=== PATIENT | male | born 1970 | race Caucasian/White ===

== ENCOUNTER → 2023-10-22 08:15 | Outpatient (BNV) | payer OTHER, SELFPAY | PROVIDERS: Visit Provider Psychiatry & Neurology Psychiatry | DX: F33.2 Major depressive disorder, recurrent severe without psychotic features (principal); F90.9 Attention-deficit hyperactivity disorder, unspecified type; F41.3 Other mixed anxiety disorders; F88 Other disorders of psychological development | CPT/HCPCS: 90792; 99213; 99214; 99499 ==

== ENCOUNTER 2023-10-22 14:35 | Outpatient (REF) | payer MEDICAID, SELFPAY ==
--- NOTE | 2023-10-22 | ECG_ITS ---
Test Reason : QTC CHECK Blood Pressure : / mmHG Vent. Rate : 056 BPM Atrial Rate : 056 BPM P-R Int : 156 ms QRS Dur : 104 ms QT Int : 444 ms P-R-T Axes : 070 -16 025 degrees QTc Int : 428 ms Sinus bradycardia Otherwise normal ECG No previous ECGs available Referred By: Denise Raman Electronically Signed By:JET RAMSEY MD
[2023-10-22 14:55] LABS: MANUAL DIFF FLAG NO
[2023-10-22 15:25] LABS: Basophils Absolute Auto 0.1 X10*3/uL (0.0-0.2); Basophils Percent Auto 0.6 % (0-2); Eosinophils Percent Auto 0.4 % (0-4); Hematocrit 40.3 % (42.0-52.0); Hemoglobin 13.8 g/dl (14.0-18.0); Imm Gran Abs Auto 0.08 X10*3/uL (0.00-0.03); Lymphocytes Absolute Auto 1.9 X10*3/uL (1.2-4.9); Lymphocytes Percent Auto 22.9 % (20-40); Mean Corpuscular HGB Conc 34.2 g/dl (31.0-36.0); Mean Corpuscular Volume 87.6 fL (80.0-98.0); Mean Platelet Volume 10.3 fL (9.4-12.4); Monocytes Absolute Auto 0.7 X10*3/uL (0.1-1.2); Monocytes Percent Auto 8.1 % (2-11); Neutrophils Absolute Auto 5.5 x10*3/uL (2.0-8.3); Platelet Count 232 X10*3/uL (160-400); Red Cell Distribution Width 13.9 % (11.0-16.0); White Blood Count 8.2 X10*3/uL (4.8-10.8)
[2023-10-22 16:01] LABS: Erythrocyte Sedimentation Rate 9 MM/HR (0-15)
[2023-10-22 16:04] LABS: Alanine Aminotransferase 53 U/L (0-40); Albumin Level 4.9 g/dL (3.5-5.0); Alkaline Phosphatase 85 U/L (39-117); Anion Gap 10 (12-20); Aspartate Amino Transferase 43 U/L (5-37); Bilirubin Total 0.3 mg/dL (0.0-1.0); Blood Urea Nitrogen 16 mg/dL (9-16); Calcium 9.9 mg/dL (8.4-10.2); Carbon Dioxide 28 mmol/L (22-29); Chloride 107 mmol/L (96-108); Estimated Glomerular Filt Rate > 60; Glucose Random 142 mg/dL (60-115); Magnesium 2.2 mg/dL (1.6-2.6); Potassium 4.2 mmol/L (3.3-5.1); Sodium 141 mmol/L (135-145); Total Protein 7.6 g/dL (6.5-8.0)
[2023-10-22 16:21] LABS: Free T4 (Free Thyroxine) 0.83 ng/dL (0.71-1.85); Thyroid Stimulating Hormone 3.05 uIU/mL (0.32-4.0)
[2023-10-22 16:25] LABS: Estimated Average Glucose 143 mg/dL; Hemoglobin A1c % 6.6 % (<6.0)
[2023-10-22 20:53] LABS: Vitamin B12 524 pg/mL (200-900)
[2023-10-23 19:24] LABS: Homocysteine 10.4 umol/L (<11.4)
== END 2023-10-22 14:36 | disposition home or self-care (01) ==
LOC: HO.LAB 14:35
PROVIDERS: Visit Provider Psychiatry & Neurology Psychiatry
DX: F39 Unspecified mood [affective] disorder (principal)
CPT/HCPCS: 36415; 80053; 82306; 82607; 83036; 83090; 83735; 84439; 84443; 85025; 85652; 86140; 93005

== ENCOUNTER → 2023-10-22 14:59 | Outpatient (BNV) | payer MEDICAID, SELFPAY | PROVIDERS: Visit Provider Internal Medicine Cardiovascular Disease | DX: R00.1 Bradycardia, unspecified (principal) | CPT/HCPCS: 93010 ==

== ENCOUNTER 2023-11-04 09:00 | Outpatient (RCR) | payer OTHER, SELFPAY ==
[2023-10-15 11:33] VITALS: BMI 26.7
--- NOTE | 2023-10-15 12:16 | PC.ADMIT ---
Patient is a 52 year old male who was referred to [facility] by his therapist d/t increased sxs of depression and anxiety. Reports history of depression for most of his life however the past 3-4 years symptoms have increased. Patient reports stresses include divorce from his of 10 years and patent had to move in with his father as a result. Patient also reports watching his mother from Parkinson's disease was traumatic, and having a HI in 2019. Patient reports he has been using Marijuana to cope with how he is feeling, a way to numb himself using a joint daily for the past 5-6 months. Patient stated he was going to college for Occupational Therapy and when Covid came his college changed from in person to online and he could not continue as he struggled to do classes online. One of his goals is to go back to college. He currently is working part-time at [employer] and [employer]. Huber is alert and oriented x4. Calm and cooperative. Presented with depressed mood and affect. Denied SI. He stated he could never do that to his father. He was given a copy of his safety plan if needed. He reports low self esteem and has been isolating d/t depression. Reports f feelings of hopelessness and worthlessness. Patient's medications reconciled with patient and patient's pharmacy. He reports he sometimes forgets to take his prescribed Lisinopril. Medication education provided and tips how to remember to take medications reviewed.
--- NOTE | 2023-10-15 15:25 | HO.PHP ---
Client's case has been opened and reviewed in treatment team.
--- NOTE | 2023-10-15 22:23 | P.HPPSP_ITS ---
HPI Date of Service: 10/15/23 Chief Complaint: MDD Sources of Information: patient interviewed, chart reviewed and crisis/core team assessment reviewed HPI Narrative: Patient is a 52 yo male with history of depression, anxiety and s/p [place] 5 years ago who was referred by his therapist for additional supports for struggles with anxiety and depression. This is his 1st PHP admission. He reports that he has been having a hard time and seems everything has been going wrong over the past few years in context of his mother's in 2018, job loss and divorce in 2020. At the time, he caring for his mother who from Parkinson's Disease back in 2018. Patient had been her primary animal care attendant and reports that it took a toll on him to watch her decline. she used to say 'just kill me please' and that was also around when the patient himself suffered a heart attack unexpectedly and was told by his upholstery bundler that had he not sought medical attention he would most certainly woud have . He notes that it's was hard to just move on and live my life normally after that event saying that the [place] had left him with a considerable amount of anticipatory anxiety and being easily triggered by any sensation in his body, trying to sense if there was an impending heart attack . 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 I just don't think the teacher liked me . He reports general decline in functioning since losing my job, it's gotten worse . He and his had a couple of separations in 2019 and eventually in 2020. 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 He reports transient helplessness, hopelessness, but denies any thoughts of harming himself or others. He reportedly feels overwhelmed, and has been struggling with emotional instability and function impairment over the past 5 years. Past Psychiatric History: No previous IPLOCs, PHP or detox admissions Denies hx of suicide attempts or SIBs Denies hx of aggression Hx of neuropsych eval - reports cognitive/reading problems, Learning Disability Therapist: Azucena Willard (for past 2-3 months) PCP: CURRENT MEDICATIONS: ZOloft 200 mg qd Buspar 15 mg qd trazodone 100 mg qhs metoprolol 25 mg qd LT4 50 mcg qd lisinopril 10 mg qd [facility] Medical History (Updated 10/30/23 @ 09:52 by Latasha Greene RN) Type 2 diabetes mellitus without complication, without long-term current use of insulin Colonic adenoma CARLOS (obstructive sleep apnea) History of migraine Vitamin B 12 deficiency Vitamin D deficiency Aortic root dilatation Nonrheumatic aortic (valve) insufficiency CAD S/P percutaneous coronary angioplasty Hypothyroidism Hyperlipidemia HTN (hypertension) Myocardial infarct Social History: , after 9 yrs of marriage. Was with ex- for years prior to marriage. No biological children. Has step-son age 22 yo, on autism spectrum. 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 Drank more often in his 20s, denies any abuse hx Nicotine use - occasionally vapes/cigs, denies regular use Once snorted buprenorphine <2 times. Denies other drug use Diagnostics Vital Signs (24Hr): BMI result Body Mass Index 26.7 Meds/Allergies Meds Home Medications ?Medication ?Instructions ?Recorded ?Confirmed ?Type aspirin 81 mg capsule 81 mg PO DAILY 10/15/23 10/15/23 History buspirone 15 mg tablet 15 mg PO DAILY 10/15/23 10/15/23 History levothyroxine 50 mcg tablet 50 mcg PO DAILY 10/15/23 10/15/23 History lisinopril 10 mg tablet 10 mg PO DAILY 10/15/23 10/15/23 History metoprolol succinate 25 mg 25 mg PO DAILY 10/15/23 10/15/23 History tablet,extended release 24 hr rosuvastatin 40 mg tablet 40 mg PO DAILY 10/15/23 10/15/23 History sertraline 100 mg tablet 200 mg PO DAILY 10/15/23 10/15/23 History trazodone 50 mg tablet 50 - 100 mg PO BEDTIME 10/15/23 10/15/23 History Allergies Allergies Allergy/AdvReac Type Severity Reaction Status Date / Time amoxicillin [From Augmentin] Allergy Hives Verified 10/15/23 11:28 clavulanic acid Allergy Hives Verified 10/15/23 11:28 [From Augmentin] Mental Status Exam Mental Status Exam Narrative: Alert, oriented, in no acute distress. Calm, cooperative, engaged. No psychomotor agitation or neurovegetative retardation. Eye contact maintained. Mood depressed, affect dysthymic, tearfulness. Speech normal. Thought process scattered, linear, coherent. Thought content related to stressors, executive dysfunction, feeling overwhelmed, some transient helplessness and hopelessness, denies SI, intention or plan. Denies any aggressive ideation. No paranoia or delusional content elicited. No evidence of psychosis. Insight and judgment fair but adequate. Assessment & Plan Assessment & Plan (1) MDD (major depressive disorder), recurrent severe, without psychosis: Status: Acute Code(s): F33.2 - Major depressive disorder, recurrent severe without psychotic features (2) ADHD (attention deficit hyperactivity disorder): Status: Acute Code(s): F90.9 - Attention-deficit hyperactivity disorder, unspecified type (3) Other mixed anxiety disorders: Status: Acute Code(s): F41.3 - Other mixed anxiety disorders (4) Mixed learning disorder: Status: Acute Code(s): F88 - Other disorders of psychological development Plan Admit to [facility] reviewed: abrefile; BP? bpm Continue regular medications for now increase Buspar to 15 mg BID-TID Routine lab work ordered UDS, EKG as indicated MassPat reviewed Continue to monitor as per protocol Patient educated on: diagnosis, medication risk/benefits and substance abuse Informed Consent: understands Certification I certify that partial hospital treatment is medically necessary due to the symptoms and problems resulting from the patient's mental illness and the failure to treat the patient at the partial hospital level of care would likely result in the patient requiring inpatient psychiatric care which could not be prevented at a less intensive level of care. Time Spent With Patient Time: Total time managing care of this patient today ____ minutes.
--- NOTE | 2023-10-22 15:40 | HO.PHP ---
[facility] staff member followed up with Huber due to him being dysregulated due to not knowing when he will be seeing the doctor. [facility] staff member provided him with support and allowed him space to process his questions around ADHD. [facility] staff member provided some insight and then Dr. Raman came into the room to meet with him. During the time [facility] staff member met with Huber, he was tearful and frustrated.
--- NOTE | 2023-10-22 23:26 | HO.PHPPROGNO ---
Subjective Subjective Date of Service: 10/22/23 Reason For Visit: MDD Interim History: I'm anxious . Patient is feeling overwhelmed by his anxiety, and poor functioning and feeling that is end date is approaching and still not sure how to problem solve to help himself. He has been reflecting on our conversation about ADHD and thinking of all the years of funcitonal struggles with chronic anxiety, multiple job losses, relationship failures and other life adversity, some of which he recognizes that he inadvertently contribute to how own failures, and recognizes some engrained habits, procrastination, self-sabotaging and is feeling really overwhelmed with the weight of life's troubles and perceived failures. He feesl ADHD makes a lot of sense and feels conflicted between feeling relief of having an explanation for his chronic mental health struggles (why years of treatment for depression, anxiety have been insufficiently addressed his problems, but also feeling regret/sense of loss for not having his attentional problems and issues with executive dysfunction appreciated or being identified earlier in life as an individual who has been struggling with ADHD for almost his entire life. Looking back it is much easier to see this now through this diagnostic lens. We discuss that treatment for ADHD is more than just taking a medication, it will require a lot of lifestyle and behaivoral changes, certainly something he can work on with a therapist (or find a therapist who is experienced with ADHD challenges), also reading and learning more about the condition, and strategies to help manage related occupational and relationship challenges. Medication as well is complicated given patient's signficant cardiac history. There are some medication interactions that I suggest we could sort out just to minimize potential adverse effects/outcomes, in order to make some space for a low dose mood stabilizer that may help with chronic mood reactivity/instability which patient is agreeable with. He is also open to having an EKG today and some routine lab work after the program today. Medication Compliance: Yes Side effects from medications: No Attending Groups: Yes Review of Systems Acute medical concerns: No Mental Status Exam Mental Status Exam Narrative: Alert, oriented, in no acute distress. Initially tearful but grew calmer with support, was cooperative and engaged. No psychomotor agitation or neurovegetative retardation. Eye contact maintained. Mood depressed, affect dysthymic, tearfulness. Speech normal. Thought process scattered, linear, coherent. Thought content related to stressors, executive dysfunction, feeling overwhelmed, some transient helplessness and hopelessness, denies SI, intention or plan. Denies any aggressive ideation. No paranoia or delusional content elicited. No evidence of psychosis. Insight and judgment fair. Diagnostics Vital Signs (24Hr): BMI result Body Mass Index 26.7 Assessment & Plan Assessment & Plan (1) MDD (major depressive disorder), recurrent severe, without psychosis: Status: Acute Code(s): F33.2 - Major depressive disorder, recurrent severe without psychotic features (2) Other specified persistent mood disorders: Status: Acute Code(s): F34.89 - Other specified persistent mood disorders (3) ADHD (attention deficit hyperactivity disorder): Status: Acute Code(s): F90.9 - Attention-deficit hyperactivity disorder, unspecified type (4) Other mixed anxiety disorders: Status: Acute Code(s): F41.3 - Other mixed anxiety disorders (5) Cannabis use disorder: Status: Acute Code(s): F12.90 - Cannabis use, unspecified, uncomplicated (6) Mixed learning disorder: Status: Acute Code(s): F88 - Other disorders of psychological development Plan Routine lab work ordered - no fasting labs as pt going after group today - will check CBC, CMP, HbA1c, TFTs, vit D, Mg, homocysteine, ESR, CRP may consider fasting labs cholestrol or other issues that arise on today's labs EKG ordered for baseline QTc, assuming wnl will plan to start Abilify 1 mg qhs may consider guanfacine ER 1 mg qd (will review EKG, VS tomorrow) and further consider other ADHD treatment continue metoprolol 25 mg qd reviewed risk, benefit, side effects of various medications to ADHD (Vyv vs modaf vs WB vs atemox vs mem) and also considered risk of treatment vs risk/benefit of not treating continue sertraline 200 mg qd for now, although plan to decrease dose, possibly to 150 mg (alana if considering NDRI) discontinue Buspar (AE: ineffective, will reduce polypharmacy) discontinue trazodone (reduce # of med/med interactions) start lorazepam 1 mg (take 1/2 - 1 tablet) PRN sleep Continue to monitor Patient educated on: diagnosis and medication risk/benefits Informed Consent: understands Reason for contiued partial hosp. stay Substantial Risk for: inability to function and med/psych decompensation Certification I certify that partial hospital treatment is medically necessary due to the symptoms and problems resulting from the patient's mental illness and the failure to treat the patient at the partial hospital level of care would likely result in the patient requiring inpatient psychiatric care which could not be prevented at a less intensive level of care. Total time managing care of this patient today __30__ minutes. Discharge Plan Discharge Attending provider: Denise Raman Medications: New aripiprazole 2 mg tablet 2 mg PO BEDTIME Qty: 20 0RF guanfacine 1 mg tablet extended release 24 hr 1 mg PO DAILY Qty: 20 0RF cholecalciferol (vitamin D3) [Vitamin D3] 125 mcg (5,000 unit) tablet 125 mcg PO DAILY 30 Days Qty: 30 2RF lorazepam 1 mg tablet 0.5 - 1 mg PO BEDTIME PRN (Reason: sleep) Qty: 20 0RF metformin 500 mg tablet 250 mg PO TID Qty: 30 0RF No Action sertraline 100 mg tablet 200 mg PO DAILY Rx Instructions: Take 2 tabs daily. trazodone 50 mg tablet 50 - 100 mg PO BEDTIME levothyroxine 50 mcg tablet 50 mcg PO DAILY metoprolol succinate 25 mg tablet extended release 24 hr 25 mg PO DAILY rosuvastatin 40 mg tablet 40 mg PO DAILY lisinopril 10 mg Tablet 10 mg PO DAILY Patient Comments: Missing doses. aspirin 81 mg Capsule 81 mg PO DAILY buspirone 15 mg tablet 15 mg PO DAILY Patient Comments: Buspar is prescribed 15 mg TID however patient stated he is only taking daily. Print Language: South Korean
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
--- NOTE | 2023-10-23 12:40 | PM.EVENT ---
Event Note Date of Service: 10/25/23 Event Note: Patient was unable to attend program today. I called and spoke with him by phone. Medications were sent over late last night so patient would not be picking them up until later today. I also briefly reviewed some of the lab findings (HbA1c was elevated at 6.6, prediabetic, but we will order a set of fasting labs including lipid panel next week. Bradycardic on EKG, so I ask that he not start with the guanfacine for now and we will revisit this next week. For now I will have him start on Abilify at 1 mg. I also sent over metformin which I will start to mitigate weight gain on an atypical rx, however I suggest he follow up with his PCP who may want to manage this further. I also sent over vitamin D supplement for vitamin D insufficiency. Will review next week when remaining lab values return. Patient denies any hopelessness or SI, says he was having care trouble and that he will be in on Thursday. Time Spent With Patient Time: Total time managing care of this patient today __15__ minutes.
--- NOTE | 2023-10-26 14:14 | PC.NURSE ---
Huber participated in group discussion about social supports and connecting to the community. Discussion and information provided on local resources for mental health in the area such as [employer]. Huber was quiet throughout group but participated when prompted.
[2023-10-28 09:25] VITALS: BP 138/81; PULSE 66
--- NOTE | 2023-10-30 23:29 | P.PNPSP_ITS ---
Subjective Subjective Date of Service: 10/30/23 Reason For Visit: MDD Interim History: Patient seen for follow-up today. Started on Abilify, has been tolerating the medication, currently at 2 mg. He also started the guanfaicne, says there were couple of days he was feeling excessively sweaty over the weekend. Seems to have resolved, says it may have been because of the weather. He has been engaging in groups and enjoys the work. Finds it difficult at time sbecause of his attention all over the place . Gets easily distracted but feels meds helping him stay more focused, less scattered . Still struggling with disorganization, says his room is still messy, and stuff piles up. I got to mostly stop being so hard on myself . Mood is still pretty depressed and mood swingy . Passive SI occured this past week, none this week. Reports depression severity at a 6 or 7 out of 10, was at a 9 out of 10 on admission. Medication Compliance: Yes Side effects from medications: No Attending Groups: Yes Review of Systems Acute medical concerns: No Mental Status Exam Mental Status Exam Narrative: Alert, oriented, in no acute distress. Calm, cooperative, engaged. No psychomotor agitation or neurovegetative retardation. Eye contact maintained. Mood depressed, affect dysthymic, tearfulness. Speech normal. Thought process scattered, linear, coherent. Thought content related to stressors, executive dysfunction, feeling overwhelmed, some transient helplessness and hopelessness, denies SI, intention or plan. Denies any aggressive ideation. No paranoia or delusional content elicited. No evidence of psychosis. Insight and judgment fair but adequate. Diagnostics Vital Signs (24Hr): BMI result Body Mass Index 26.7 Assessment & Plan Assessment & Plan (1) MDD (major depressive disorder), recurrent severe, without psychosis: Status: Acute Code(s): F33.2 - Major depressive disorder, recurrent severe without psychotic features (2) ADHD (attention deficit hyperactivity disorder): Status: Acute Code(s): F90.9 - Attention-deficit hyperactivity disorder, unspecified type (3) Other mixed anxiety disorders: Status: Acute Code(s): F41.3 - Other mixed anxiety disorders (4) Mixed learning disorder: Status: Acute Code(s): F88 - Other disorders of psychological development Plan start guanfacine ER 1 mg qd continue Abilify 2 mg qd continue Buspar 15 mg BID Routine lab work ordered UDS, EKG as indicated Continue to monitor Patient educated on: diagnosis and medication risk/benefits Informed Consent: understands Reason for contiued partial hosp. stay Substantial Risk for: inability to function, rapid decompensation and med/psych decompensation Certification I certify that partial hospital treatment is medically necessary due to the symptoms and problems resulting from the patient's mental illness and the failure to treat the patient at the partial hospital level of care would likely result in the patient requiring inpatient psychiatric care which could not be prevented at a less intensive level of care. Total time managing care of this patient today __30__ minutes. Discharge Plan Discharge Attending provider: Denise Raman Medications: New aripiprazole 2 mg tablet 2 mg PO BEDTIME Qty: 20 0RF cholecalciferol (vitamin D3) [Vitamin D3] 125 mcg (5,000 unit) tablet 125 mcg PO DAILY 30 Days Qty: 30 2RF lorazepam 1 mg tablet 0.5 - 1 mg PO BEDTIME PRN (Reason: sleep) Qty: 20 0RF metformin 500 mg tablet 250 mg PO TID Qty: 30 0RF Continued sertraline 100 mg tablet 200 mg PO DAILY Rx Instructions: Take 2 tabs daily. levothyroxine 50 mcg tablet 50 mcg PO DAILY metoprolol succinate 25 mg tablet extended release 24 hr 25 mg PO DAILY rosuvastatin 40 mg tablet 40 mg PO DAILY lisinopril 10 mg Tablet 10 mg PO DAILY Patient Comments: Missing doses. aspirin 81 mg Capsule 81 mg PO DAILY buspirone 15 mg tablet 15 mg PO DAILY Patient Comments: Buspar is prescribed 15 mg TID however patient stated he is only taking daily. Changed guanfacine 1 mg tablet extended release 24 hr 1 - 2 mg PO DAILY Qty: 30 0RF Discontinued trazodone 50 mg tablet 50 - 100 mg PO BEDTIME Stand Alone Forms: Patient Portal Discharge page Patient Education: Guanfacine (By mouth), Aripiprazole (By mouth), ADHD in Adults (ED), ADHD in Adults (DC), ADHD in Adults (GEN), Depression (DC) Print Language: Ethiopian
--- NOTE | 2023-11-03 22:19 | HO.PHPPROGNO ---
Subjective Subjective Date of Service: 11/03/23 Reason For Visit: MDD Interim History: Patient seen for follow-up, anticipating discharge at the end of program today.?Is nervous about leaving mostly because he realizes it has been helpful to have daily routine and says he will talk about building more day structure with his therapist. 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 Reports no acute issues or concerns. Medication compliant, medications well-tolerated. Doing well with Abilify and guanfacine. Denies any adverse effects.?Reports that BP still running a bit high, but better, and would like to increase dose of guanfacine to 2 mg. Mood is stable, I feel okay . He lives in [place] and plans to reach out to [facility] to connect with a psych provider in the area, seeing as his current psychiatrist is in [facility]. Therapist is local. Denies any hopelessness or SI. Denies thoughts of harming self or others at this time. Denies any aggressive ideation or HI. Denies any paranoia or AH or VH. Sleep, appetite, energy stable. Mental Status Exam Mental Status Exam Narrative: Alert, oriented, in no acute distress. Calm, cooperative. Mood stable, affect bright, appropriate. Speech normal. Thought process linear, coherent, more goal-directed. Thought content related to stressors, future-oriented, denies any helplessness, hopelessness or SI.? No aggressive ideation or HI. No paranoia or delusional content elicited. No evidence of psychosis. Insight and judgment fair-good. Diagnostics Vital Signs (24Hr): BMI result Body Mass Index 26.7 Assessment & Plan Assessment & Plan (1) MDD (major depressive disorder), recurrent severe, without psychosis: Status: Acute Code(s): F33.2 - Major depressive disorder, recurrent severe without psychotic features (2) ADHD (attention deficit hyperactivity disorder): Status: Acute Code(s): F90.9 - Attention-deficit hyperactivity disorder, unspecified type (3) Other mixed anxiety disorders: Status: Acute Code(s): F41.3 - Other mixed anxiety disorders (4) Mixed learning disorder: Status: Acute Code(s): F88 - Other disorders of psychological development Plan Discharge from [facility] continue guanfacine ER 1-2 mg qd continue Abilify 2 mg qd continue Buspar 15 mg QD-BID continue other regular medications will defer further medication management to outpatient provider Refills sent to pharmacy Patient educated on: diagnosis and medication risk/benefits Informed Consent: understands Certification I certify that partial hospital treatment is medically necessary due to the symptoms and problems resulting from the patient's mental illness and the failure to treat the patient at the partial hospital level of care would likely result in the patient requiring inpatient psychiatric care which could not be prevented at a less intensive level of care. Total time managing care of this patient today _30___ minutes. Discharge Plan Discharge Attending provider: Denise Raman Medications: New aripiprazole 2 mg tablet 2 mg PO BEDTIME Qty: 20 0RF cholecalciferol (vitamin D3) [Vitamin D3] 125 mcg (5,000 unit) tablet 125 mcg PO DAILY 30 Days Qty: 30 2RF lorazepam 1 mg tablet 0.5 - 1 mg PO BEDTIME PRN (Reason: sleep) Qty: 20 0RF metformin 500 mg tablet 250 mg PO TID Qty: 30 0RF Continued sertraline 100 mg tablet 200 mg PO DAILY Rx Instructions: Take 2 tabs daily. levothyroxine 50 mcg tablet 50 mcg PO DAILY metoprolol succinate 25 mg tablet extended release 24 hr 25 mg PO DAILY rosuvastatin 40 mg tablet 40 mg PO DAILY lisinopril 10 mg Tablet 10 mg PO DAILY Patient Comments: Missing doses. aspirin 81 mg Capsule 81 mg PO DAILY buspirone 15 mg tablet 15 mg PO DAILY Patient Comments: Buspar is prescribed 15 mg TID however patient stated he is only taking daily. Changed guanfacine 1 mg tablet extended release 24 hr 1 - 2 mg PO DAILY Qty: 30 0RF Discontinued trazodone 50 mg tablet 50 - 100 mg PO BEDTIME Stand Alone Forms: Patient Portal Discharge page Patient Education: Guanfacine (By mouth), Aripiprazole (By mouth), ADHD in Adults (ED), ADHD in Adults (DC), ADHD in Adults (GEN), Depression (DC) Print Language: Kyrgyz
== END 2023-11-04 23:59 | disposition home or self-care (01) ==
LOC: HO.PHPA 09:00
PROVIDERS: Visit Provider Psychiatry & Neurology Psychiatry
DX: F33.2 Major depressive disorder, recurrent severe without psychotic features (principal); F90.9 Attention-deficit hyperactivity disorder, unspecified type; F41.3 Other mixed anxiety disorders; F88 Other disorders of psychological development; Z79.899 Other long term (current) drug therapy
CPT/HCPCS: 90791; 90853